=== PATIENT | male | born 1935 | race Asian ===

== ENCOUNTER → 2016-07-06 | Outpatient (CLI) | payer MEDICARE, OTHER ==
[~2016-07-06] MED LIST: ASPI-1093 PO; ATOR40TA28 PO; DUTA0.5C15 PO; FAMO20 PO; GABA-529 PO; HYDR-3965 PO; LISI-661 PO; METO25 PO; TICA90TA PO; TRAM50TA4 PO; [UNRECOGNIZED DRUG - CODE] PO
[2016-07-06 12:59] LABS: HEMATOCRIT 38.5 % (41-53); HEMOGLOBIN 12.9 g/dL (13.5-17.5)
[2016-07-06 13:04] LABS: IRON, SERUM 90 mcg/dL (50-175); TOTAL IRON BINDING CAPACITY 263 mcg/dL (250-450)
[2016-07-06 13:11] LABS: APPEARANCE,URINE CLEAR (CLEAR); GLUCOSE, URINE (UA) NEGATIVE (NEGATIVE); KETONES,URINE NEGATIVE (NEGATIVE); LEUKOCYTE ESTERASE ,URINE NEGATIVE (NEGATIVE); OCCULT BLOOD,URINE NEGATIVE (NEGATIVE); PH,URINE 5.5 (5.0-8.0); PROTEIN,URINE NEGATIVE (NEGATIVE)
[2016-07-06 13:12] LABS: ADD UA MICROSCOPIC NO
[2016-07-06 13:19] LABS: ANION GAP 11 mmol/L (8-16); CARBON DIOXIDE 26 mmol/L (22-29); CHLORIDE 108 mmol/L (98-107); CREATININE 1.14 mg/dL (0.60-1.30); FERRITIN 79 ng/mL (26-388); GLOMERULAR FILTR. RATE CALC > 60 mL/min (>60); PHOSPHORUS 3.8 mg/dL (2.5-4.9); POTASSIUM 4.6 mmol/L (3.5-5.1); SODIUM SERUM 145 mmol/L (136-145); UREA NITROGEN, BLOOD 34 mg/dL (7-18)
[2016-07-06 13:35] LABS: VITAMIN B12 LEVEL 757 pg/mL (211-911)
== END | disposition home or self-care (01) ==
LOC: LABPV 09:34
PROVIDERS: ATTEND Internal Medicine Nephrology
DX: I12.9 Hypertensive chronic kidney disease with stage 1 through stage 4 chronic kidney disease, or unspecified chronic kidney disease (principal); N18.3 Chronic kidney disease, stage 3 (moderate); E78.5 Hyperlipidemia, unspecified; Z86.2 Personal history of diseases of the blood and blood-forming organs and certain disorders involving the immune mechanism
CPT/HCPCS: 81050; 82306; 82575; 82607; 82728; 82746; 83540; 83550; 83970; 84100; 84156; 84300; 84466; 85014; 85018

== ENCOUNTER 2019-01-14 18:12 | Emergency (ER) | payer MEDICARE, OTHER ==
[~2019-01-14] VITALS: Ht 152.4 cm; Wt 77.3 kg
[~2019-01-14 18:12] MED LIST changes: -ASPI-1093 PO; +ASPI-1182 PO; -DUTA0.5C15 PO; +DUTA0.5C17 PO
[2019-01-14] MEDS ORDERED: ROSU10TA22 PO (18:25)
[2019-01-14] MEDS ORDERED: TraMADol HCL 50 MG TABLET PO ONE (19:30)
[2019-01-14 19:54] LABS: BASOPHILS % (AUTO) 0.8 % (0.0-2.0); EOSINOPHILS % (AUTO) 3.9 % (1.0-6.0); HEMATOCRIT 39.1 % (41-53); HEMOGLOBIN 13.5 g/dL (13.5-17.5); LYMPHOCYTES # (AUTO) 0.5 K/uL (1.0-4.8); LYMPHOCYTES % (AUTO) 9.9 % (22.0-44.0); MEAN CORPUSCULAR HEMOGLOBIN 32.3 pg (26.0-34.0); MEAN CORPUSCULAR HGB CONC 34.5 G/dL (31.0-37.0); MEAN CORPUSCULAR VOLUME 94 fL (80-100); MONOCYTES # (AUTO) 0.5 K/uL (0.1-1.0); MONOCYTES % (AUTO) 10.7 % (2.0-9.0); NEUTROPHILS # (AUTO) 3.7 K/uL (1.8-7.7); NEUTROPHILS % (AUTO) 74.7 % (40.0-70.0); PLATELET COUNT (AUTO) 229 K/uL (150-450); RED BLOOD CELL COUNT(AUTO) 4.17 MIL/uL (4.50-5.90); RED CELL DISTRIBUTION WIDTH 15.3 % (11.5-14.5)
[2019-01-14 20:19] LABS: CALCIUM, TOTAL 9.4 mg/dL (8.8-10.5); CREATININE 1.79 mg/dL (0.60-1.30); POTASSIUM 3.9 mmol/L (3.5-5.1)
[2019-01-14 20:24] LABS: ALBUMIN 3.6 g/dL (3.4-5.0); BILIRUBIN,TOTAL 0.5 mg/dL (0.1-1.0); C-REACTIVE PROTEIN QUANT 4.74 mg/dL (0.00-0.30); TOTAL PROTEIN, SERUM 7.4 g/dL (6.4-8.2)
[2019-01-14 20:37] LABS: URIC ACID 3.9 mg/dL (2.6-7.2)
[2019-01-14 21:12] LABS: ERYTHROCYTE SEDIMENTATION RATE 74 MM/HR (0-15)
[2019-01-14] MEDS ORDERED: DOXYCYCLINE HYCLATE 100 MG CAPSULE PO ONE (21:30)
[2019-01-14 22:22] VITALS: BP 131/75
== END 2019-01-14 22:31 | disposition home or self-care (01) ==
LOC: EMS 18:13
DX: L03.116 Cellulitis of left lower limb (principal); E78.00 Pure hypercholesterolemia, unspecified; I10 Essential (primary) hypertension; Z79.899 Other long term (current) drug therapy; Z79.82 Long term (current) use of aspirin
CPT/HCPCS: 84550; 85651; 86140; 87040